=== PATIENT | male | born 1960 | race Hispanic/Latino ===

== ENCOUNTER 2023-02-13 21:05 | Emergency (ER) | payer OTHER ==
[~2023-02-13] VITALS: Ht 167.6 cm; Wt 72.6 kg
[2023-02-13 21:59] LABS: BASOPHILS # (AUTO) 0.03 K/uL (0.00-0.20); BASOPHILS % (AUTO) 0.5 % (0.0-5.0); EOSINOPHILS # (AUTO) 0.08 K/uL (0.00-0.70); EOSINOPHILS % (AUTO) 1.5 % (0.0-8.0); IMMATURE GRANULOCYTE ABSOLUTE 0.02 K/uL (0-1); LYMPHOCYTES # (AUTO) 1.9 K/uL (1.0-4.8); LYMPHOCYTES % (AUTO) 34.5 % (21.0-51.0); MEAN CORPUSCULAR HEMOGLOBIN 33.6 pg (27.0-33.0); MEAN CORPUSCULAR HGB CONC 37.2 g/dL (32.0-36.0); MEAN CORPUSCULAR VOLUME 90.2 fL (79-99); MONOCYTES # (AUTO) 0.6 K/uL (0.1-1.0); MONOCYTES % (AUTO) 10.3 % (3.0-13.0); NEUTROPHILS # (AUTO) 2.9 K/uL (1.8-7.7); NEUTROPHILS % (AUTO) 52.8 % (40.0-77.0); PLATELET COUNT (AUTO) 92 K/uL (130-400); RED BLOOD CELL COUNT(AUTO) 3.99 MIL/uL (4.50-6.20); RED CELL DISTRIBUTION WIDTH 11.8 % (11.0-15.5); WHITE BLOOD COUNT (AUTO) 5.5 K/uL (4.8-10.8)
[2023-02-13] MEDS ORDERED: METOCLOPRAMIDE 10 MG/2 ML VIAL IVP ONE (22:00)
[2023-02-13] MEDS ORDERED: ONDANSETRON 4MG INJ IVP ONE (22:00)
[2023-02-13] MEDS ORDERED: 0.9%NACL 1000ML 1,000 ML IV ONE (22:00)
[2023-02-13] MEDS ORDERED: FAMOTIDINE 20MG VIAL IV ONE (22:00)
[2023-02-13] MEDS ORDERED: IOHEXOL-350 75 ML VIAL IV ONE ×2 (22:00→22:45)
[2023-02-13] MEDS ORDERED: MORPHINE 4 MG SYG IVP ONE ×2 (22:00)
[2023-02-13 22:23] LABS: ALBUMIN 3.2 g/dL (3.5-5.0); BILIRUBIN,TOTAL 0.7 mg/dL (0.2-1.0); CREATININE 0.9 mg/dL (0.5-1.5); POTASSIUM 3.5 mmol/L (3.5-5.1); TOTAL PROTEIN, SERUM 6.7 g/dL (6.0-8.3)
[2023-02-13 23:02] LABS: APPEARANCE,URINE CLEAR (CLEAR); BILIRUBIN,URINE NEGATIVE (NEGATIVE); COLOR,URINE LIGHT-YELLOW (YELLOW); GLUCOSE, URINE (UA) >=1000 mg/dL (NEGATIVE); KETONES,URINE NEGATIVE (NEGATIVE); LEUKOCYTE ESTERASE ,URINE NEGATIVE Leu/uL (NEGATIVE); NITRATE,URINE NEGATIVE (NEGATIVE); OCCULT BLOOD,URINE NEGATIVE (NEGATIVE); PH,URINE 5.5 (5.0-8.0); PROTEIN,URINE NEGATIVE (NEGATIVE); UROBILINOGEN,URINE 0.2 mg/dL (0.2-1.0)
[2023-02-13 23:04] LABS: ADD UA MICROSCOPIC YES
[2023-02-13 23:06] LABS: SQUAMOUS EPITHELIAL CELL,UR RARE /HPF (0-2); WBC,URINE 0-1 /HPF (0-1)
[2023-02-14] MEDS ORDERED: POLY17PO4 PO (00:55)
[2023-02-14] MEDS ORDERED: LACTULOSE 20 GM/30 ML UDCUP PO ONE (01:00)
[2023-02-14 01:20] VITALS: BP 154/74; PULSE 88; RESP 18; O2SAT 100
== END 2023-02-14 01:23 | disposition home or self-care (01) ==
LOC: EDH 21:05
DX: K59.00 Constipation, unspecified (principal); I10 Essential (primary) hypertension; E11.9 Type 2 diabetes mellitus without complications
CPT/HCPCS: 99285; 74177; 96374; 96375; 71045; 96361; 82550; 84484; 80053; 83690; 85025; 83605; 81001; 36415; 72170; 93005; J3490; J7030; J2405; J2270 ×2; J2765; Q9967 ×2